=== PATIENT | female | born 1980 | race African-American/Black ===

== ENCOUNTER 2017-11-13 14:46 | Inpatient (IN) | payer OTHER ==
[2017-11-13 15:27] VITALS: BMI 39.9
--- NOTE | 2017-11-13 15:57 | HP ---
CIWA Score - CIWA Score Nausea/Vomitin-No Nausea/No Vomiting Muscle Tremors: 1-None Visible, but [place] Anxiety: 1-Mildly Anxious Agitation: 0-Normal Activity Paroxysmal Sweats: No Perspiration Orientation: 0-Oriented Tacttile Disturbances: 0-None Auditory Disturbances: 0-None Visual Disturbances: 0-None Headache: 1-Very Mild CIWA-Ar Total Score: 3 Admission ROS [facility] - HPI Chief Complaint: I'm here from drug court Allergies/Adverse Reactions: Allergies Allergy/AdvReac Type Severity Reaction Status Date / Time No Known Allergies Allergy Verified 11/13/17 15:49 History of Present Illness: 37 yo woman here for rehab. States for marijuana - also drinking vodka but states she does not want or need detox. States she is court mandated. Has been attending outpatient at [facility]. Denies seizures or black outs. Exam Limitations: No Limitations, Clinical Condition - Ebola screening Have you traveled outside of the country in the last 21 days: No Have you had contact with anyone from an Ebola affected area: No Do you have a fever: No - Review of Systems Constitutional: No Symptoms Reported EENT: reports: Blurred Vision, Nose Congestion Respiratory: reports: No Symptoms reported Cardiac: reports: No Symptoms Reported GI: reports: No Symptoms Reported : reports: No Symptoms Reported Musculoskeletal: reports: Back Pain Integumentary: reports: Dryness Neuro: reports: No Symptoms reported Endocrine: reports: No Symptoms Reported Hematology: reports: No Symptoms Reported Psychiatric: reports: Mood/Affect Appropiate, Orientated x3, other (sad about having to be here) Other Systems: Reviewed and Negative Patient History - Patient Medical History Hx Asthma: No Hx Chronic Obstructive Pulmonary Disease (COPD): No Hx Cancer: No Hx Cardiac Disorders: No Hx Congestive Heart Failure: No Hx Hypertension: Yes (on hctz) Hx Hypercholesterolemia: No Hx Pacemaker: No HX Cerebrovascular Accident: No Hx Seizures: No Hx Diabetes: No Hx Gastrointestinal Disorders: No Hx Liver Disease: No Hx Genitourinary Disorders: No Hx Sexually Transmitted Disorders: No Hx Renal Disease (ESRD): No Hx Thyroid Disease: No Hx Human Immunodeficiency Virus (HIV): No Hx Hepatitis C: No Hx Depression: Yes (with insomnia - on meds) Hx Suicide Attempt: No Hx Bipolar Disorder: No Hx Schizophrenia: No Other Medical History: eczema, back pain - Patient Surgical History Past Surgical History: No - PPD History Previous Implant?: Yes Documented Results: Negative w/o proof PPD to be Administered?: Yes - Reproductive History Patient is a Female of Child Bearing Age (11 -55 yrs old): Yes - Smoking Cessation Smoking history: Current every day smoker Have you smoked in the past 12 months: Yes Aproximately how many cigarettes per day: 20 Hx Chewing Tobacco Use: No Initiated information on smoking cessation: Yes 'Breaking Loose' booklet given: 11/13/17 - Substance & Tx. History Hx Alcohol Use: Yes Hx Substance Use: Yes Substance Use Type: Marijuana - Substances Abused Marijuana/Hashish Route: Smoking Frequency: Daily Amount used: 1 blunt Age of first use: 13 Date of Last Use: 11/12/17 alcohol Route: Oral Frequency: Daily Amount used: 2 pints Age of first use: 18 Date of Last Use: 11/12/17 Family Disease History - Family Disease History Family Disease History: Other: Father (never met him), Mother (living ,healthy) , Brother (one - living ), Sister (two - living - healthy), Daughter (one - age 11 - healthy) Admission Physical Exam [facility] - Vital Signs Vital Signs: Vital Signs - 24 hr 11/13/17 15:23 Temperature 97.5 F L Pulse Rate 77 Respiratory 20 Rate Blood Pressure 135/89 - Physical General Appearance: Yes: Nourished, Appropriately Dressed, Mild Distress HEENTM: Yes: Hearing grossly Normal, Normocephalic, Normal Voice, Pharynx Normal , Nasal Congestion Respiratory: Yes: Normal Breath Sounds, No Respiratory Distress Neck: Yes: No masses,lesions,Nodules, Supple Breast: Yes: Breast Exam Deferred Cardiology: Yes: Regular Rhythm, Regular Rate Abdominal: Yes: Soft Genitourinary: Yes: Within Normal Limits Back: Yes: Normal Inspection Musculoskeletal: Yes: full range of Motion, Gait Steady, Back pain Extremities: Yes: Normal Inspection, Normal Range of Motion, Non-Tender Neurological: Yes: Fully Oriented, Alert, Motor Strength 5/5, Normal Mood/Affect , Normal Response Integumentary: Yes: Normal Color, Dry, Warm, Other (mild itching at flexure elbow) Lymphatic: Yes: Within Normal Limits - Diagnostic (1) Alcohol dependence Current Visit: Yes Status: Acute Qualifiers: Substance use status: uncomplicated Qualified Code(s): F10.20 - Alcohol dependence, uncomplicated (2) Cannabis dependence Current Visit: Yes Status: Acute (3) Nicotine dependence Current Visit: Yes Status: Acute Qualifiers: Nicotine product type: cigarettes Substance use status: uncomplicated Qualified Code(s): F17.210 - Nicotine dependence, cigarettes, uncomplicated (4) Eczema Current Visit: Yes Status: Acute Qualifiers: Eczema type: flexural Qualified Code(s): L20.82 - Flexural eczema (5) HTN (hypertension) Current Visit: Yes Status: Acute Qualifiers: Hypertension type: essential hypertension Qualified Code(s): I10 - Essential (primary) hypertension [facility] Breath Alcohol Content Breath Alcohol Content: 0 Urine Pregancy Test - Result Urine Test Results: Negative- NO Line Present Inpatient Rehab Admission - Initial Determination Are CD services needed?: Yes Free of communicable disease: Yes Not in need of hospitalization: No - Rehab Admission Criteria Previous failed treatment: Yes Poor recovery environment: No Comorbidities: Yes Lacks judgement: No Patient is meeting Inpatient Rehab admission criteria:: Yes
[2017-11-13] MEDS ORDERED: MAGNESIUM HYDROX 2400MG/30ML ORAL SUSPENSION 30 ML CUP PO PRN (16:05)
[2017-11-13] MEDS ORDERED: P-EPHED 60MG/TRIPROLIDI 2.5MG TABLET PO PRN (16:05)
[2017-11-13] MEDS ORDERED: guaiFENesin/D-METHORPHAN HB 10 ML UNIT-DOSE CUPS PO PRN (16:05)
[2017-11-13] MEDS ORDERED: LOPERAMIDE HCL 2 MG CAPSULE PO PRN (16:05)
[2017-11-13] MEDS ORDERED: MENTHOL/PHENOL 1 EACH UD MM PRN (16:05)
[2017-11-13] MEDS ORDERED: MAG HYDROX/AL HYDROX/SIMETH 30 ML UNIT-DOSE CUP PO PRN (16:05)
[2017-11-13] MEDS ORDERED: MAGNESIUM CITRATE 300 ML BOTTLE PO PRN (16:05)
[2017-11-13] MEDS ORDERED: ACETAMINOPHEN 325 MG TABLET (FP) PO PRN (16:05)
[2017-11-13] MEDS ORDERED: TUBERCULIN PPD 5 TU/0.1ML VIAL ID ONE (20:30)
[2017-11-13] MEDS: CYCLOBENZAPRINE HCL 10 MG TABLET (FP) PO SCH (21:05)
[2017-11-13] MEDS: SENNOSIDES 8.6MG TABLET (FP) PO SCH (21:05)
[2017-11-13] MEDS: traZODone HCL 100 MG TABLET (FP) PO SCH (21:05)
[2017-11-13] MEDS: THIAMINE HCL 100 MG TABLET (FP) PO SCH (21:05)
[2017-11-13] MEDS: HYDROCHLOROTHIAZIDE 25 MG TABLET (FP) PO SCH (21:05)
[2017-11-13] MEDS: valACYclovir HCL 500 MG TABLET (FP) PO SCH (21:05)
[2017-11-13] MEDS: MELATONIN 5 MG TABLETS PO PRN (21:07)
[2017-11-13] MEDS: FLUTICASONE PROP 0.05% 16 GM NASAL SPRAY NS SCH (23:08)
[2017-11-14] MEDS: IBUPROFEN 400 MG TABLET (FP) PO PRN (06:56)
[2017-11-14] MEDS: PRENATAL VITAMINS W/ FOLIC ACID TABLET (FP) PO SCH (10:30)
[2017-11-14 10:40] LABS: HEMATOCRIT 33.2 % (32.4-45.2); HEMOGLOBIN 11.1 GM/dL (10.7-15.3); MCH 29.1 pg (25.7-33.7); MCHC 33.3 g/dl (32.0-36.0); MEAN CELL VOLUME 87.4 fl (80-96); MEAN PLT VOLUME 8.6 fl (7.5-11.1); PLATELET COUNT 281 K/MM3 (134-434); RDW 14.1 % (11.6-15.6); WHITE BLOOD COUNT 7.6 K/mm3 (4.0-10.0)
[2017-11-14 10:46] LABS: CHLORIDE 102 mmol/L (98-107); POTASSIUM 3.1 mmol/L (3.5-5.1); SODIUM 141 mmol/L (136-145)
[2017-11-14 11:01] LABS: ALBUMIN 3.1 g/dl (3.4-5.0); ALK PHOS 80 U/L (45-117); ANION GAP 11 MMOL/L (8-16); BILIRUBIN,TOTAL 0.2 mg/dL (0.2-1.0); BLOOD UREA NITROGEN 15 mg/dL (7-18); CALCIUM 8.9 mg/dL (8.5-10.1); CO2 28 mmol/L (21-32); CREATININE 0.9 mg/dL (0.55-1.02); GLUCOSE,RANDOM 125 mg/dL (74-106); SGOT/AST 36 U/L (15-37); SGPT/ALT 34 U/L (12-78); TOT PROT 6.7 g/dl (6.4-8.2)
--- NOTE | 2017-11-14 13:19 | PN ---
[facility] Progress Note Note: Vital Signs Temperature 98.2 F 11/14/17 07:28 Pulse Rate 71 11/14/17 07:28 Respiratory Rate 18 11/14/17 07:28 Blood Pressure 114/78 11/14/17 07:28 O2 Sat by Pulse Oximetry (%) Laboratory Last Values WBC 7.6 K/mm3 (4.0-10.0) 11/14/17 08:00 RBC 3.80 M/mm3 (3.60-5.2) 11/14/17 08:00 Hgb 11.1 GM/dL (10.7-15.3) 11/14/17 08:00 Hct 33.2 % (32.4-45.2) 11/14/17 08:00 MCV 87.4 fl (80-96) 11/14/17 08:00 MCH 29.1 pg (25.7-33.7) 11/14/17 08:00 MCHC 33.3 g/dl (32.0-36.0) 11/14/17 08:00 RDW 14.1 % (11.6-15.6) 11/14/17 08:00 Plt Count 281 K/MM3 (134-434) 11/14/17 08:00 MPV 8.6 fl (7.5-11.1) 11/14/17 08:00 Sodium 141 mmol/L (136-145) 11/14/17 08:00 Potassium 3.1 mmol/L (3.5-5.1) L 11/14/17 08:00 Chloride 102 mmol/L (98-107) 11/14/17 08:00 Carbon Dioxide 28 mmol/L (21-32) 11/14/17 08:00 Anion Gap 11 MMOL/L (8-16) 11/14/17 08:00 BUN 15 mg/dL (7-18) 11/14/17 08:00 Creatinine 0.9 mg/dL (0.55-1.02) 11/14/17 08:00 Creat Clearance w eGFR > 60 (>60) 11/14/17 08:00 Random Glucose 125 mg/dL (74-106) H 11/14/17 08:00 Calcium 8.9 mg/dL (8.5-10.1) 11/14/17 08:00 Total Bilirubin 0.2 mg/dL (0.2-1.0) 11/14/17 08:00 AST 36 U/L (15-37) 11/14/17 08:00 ALT 34 U/L (12-78) 11/14/17 08:00 Alkaline Phosphatase 80 U/L (45-117) 11/14/17 08:00 Total Protein 6.7 g/dl (6.4-8.2) 11/14/17 08:00 Albumin 3.1 g/dl (3.4-5.0) L 11/14/17 08:00 RPR Titer Nonreactive (NONREACTIVE) 11/14/17 08:00 Labs review mild hyperglycemia, asymptomatic increase fluids BGM ACBK x2 continue to monitor
[2017-11-14] MEDS: SENNOSIDES 8.6MG TABLET (FP) PO SCH (21:39)
[2017-11-14] MEDS: HYDROCHLOROTHIAZIDE 25 MG TABLET (FP) PO SCH (21:39)
[2017-11-14] MEDS: THIAMINE HCL 100 MG TABLET (FP) PO SCH (21:39)
[2017-11-14] MEDS: CYCLOBENZAPRINE HCL 10 MG TABLET (FP) PO SCH (21:39)
[2017-11-14] MEDS: traZODone HCL 100 MG TABLET (FP) PO SCH (21:39)
[2017-11-14] MEDS: valACYclovir HCL 500 MG TABLET (FP) PO SCH (21:41)
[2017-11-14] MEDS: FLUTICASONE PROP 0.05% 16 GM NASAL SPRAY NS SCH (21:41)
[2017-11-15] MEDS: PRENATAL VITAMINS W/ FOLIC ACID TABLET (FP) PO SCH (10:15)
[2017-11-15 11:45] LABS: URINE APPEARANCE SLCLOUDY; URINE BILIRUBIN NEGATIVE (<2.0 mg/dL); URINE COLOR YELLOW; URINE GLUCOSE (UA) NEGATIVE (NEGATIVE); URINE KETONE NEGATIVE (NEGATIVE); URINE LEUK ESTERASE NEGATIVE (NEGATIVE); URINE NITRITE NEGATIVE (NEGATIVE); URINE PROTEIN NEGATIVE (NEGATIVE); URINE UROBILINOGEN NEGATIVE mg/dL (0.2-1.0)
[2017-11-15] MEDS: CYCLOBENZAPRINE HCL 10 MG TABLET (FP) PO SCH (21:30)
[2017-11-15] MEDS: SENNOSIDES 8.6MG TABLET (FP) PO SCH (21:30)
[2017-11-15] MEDS: HYDROCHLOROTHIAZIDE 25 MG TABLET (FP) PO SCH (21:30)
[2017-11-15] MEDS: traZODone HCL 100 MG TABLET (FP) PO SCH (21:30)
[2017-11-15] MEDS: THIAMINE HCL 100 MG TABLET (FP) PO SCH (21:30)
[2017-11-15] MEDS: valACYclovir HCL 500 MG TABLET (FP) PO SCH (22:03)
[2017-11-15] MEDS: FLUTICASONE PROP 0.05% 16 GM NASAL SPRAY NS SCH (22:03)
--- NOTE | 2017-11-16 08:49 | HP ---
Psychiatrist Admission - Data Date of interview: 11/16/17 Admission source: [address] Identifying data: This is the first admission to [address] [place] [address] for this 37 years ols single AA mother of 11 yo daughter(child resides with the patient's mother).Patient is homeless,supported with PA. Medical History: Significant for HTN,Obesity. Psychiatric History: Patient reports mood instability,depression,anxiety on and off related to drug /alcohol abuse.No previous psychiatric hospitalizations, no suicidal attempts reported .Patient was given Buspar 30 mg po daily and Trazodone 150 mg po hs, while treated in one of the inpatient rehabilitation treatments.Patient continued the same medications prescribed by psychiatrist at [facility] in [facility]. Physical/Sexual Abuse/Trauma History: denies Vital Signs: Vital Signs - 24 hr 11/15/17 11/15/17 11/16/17 09:05 22:10 00:30 Temperature Pulse Rate 72 73 Respiratory 18 18 Rate Blood Pressure 111/73 115/72 11/16/17 11/16/17 03:30 07:14 Temperature 99 F Pulse Rate 96 H Respiratory 18 16 Rate Blood Pressure 111/72 Allergies/Adverse Reactions: Allergies Allergy/AdvReac Type Severity Reaction Status Date / Time No Known Allergies Allergy Verified 11/13/17 15:49 Concur with the findings of this exam: Yes - Substance Abuse/Tx History Hx Alcohol Use: Yes (drinking since her teens,eduardo liquor) Hx Substance Use: Yes (marjuana since 13 yo,blunt a day,cocaine since 16 yo, more than $100) Substance Use Type: Alcohol, Cocaine, Marijuana Hx Substance Use Treatment: Yes (completed [facility] 6 months ago) Mental Status Exam - Mental Status Exam Alert and Oriented to: Time, Place, Person Cognitive Function: Grossly Intact Patient Appearance: Well Groomed Mood: Anxious Affect: Mood Congruent, Labile Patient Behavior: Cooperative Speech Pattern: Clear Voice Loudness: Normal Thought Process: Goal Oriented Thought Disorder: Not Present Hallucinations: Denies Suicidal Ideation: Denies Homicidal Ideation: Denies Insight/Judgement: Fair Sleep: Fair Appetite: Good Muscle strength/Tone: Normal Gait/Station: Normal Psychiatric Findings - Problem List ([place] 1, 2,3) (1) Alcohol dependence Current Visit: Yes Status: Chronic Qualifiers: Substance use status: uncomplicated Qualified Code(s): F10.20 - Alcohol dependence, uncomplicated (2) Cannabis dependence Current Visit: Yes Status: Chronic (3) Eczema Current Visit: Yes Status: Chronic Qualifiers: Eczema type: flexural Qualified Code(s): L20.82 - Flexural eczema (4) HTN (hypertension) Current Visit: Yes Status: Chronic Qualifiers: Hypertension type: essential hypertension Qualified Code(s): I10 - Essential (primary) hypertension (5) Nicotine dependence Current Visit: Yes Status: Chronic Qualifiers: Nicotine product type: cigarettes Substance use status: uncomplicated Qualified Code(s): F17.210 - Nicotine dependence, cigarettes, uncomplicated (6) Obesity (BMI 30-39.9) Current Visit: Yes Status: Chronic (7) Cocaine dependence Current Visit: Yes Status: Chronic (8) Drug-induced mood disorder Current Visit: Yes Status: Chronic - Initial Treatment Plan Initial Treatment Plan: Continue current medications as per plan. Will monitor progress.
[2017-11-16] MEDS: PRENATAL VITAMINS W/ FOLIC ACID TABLET (FP) PO SCH (09:46)
--- NOTE | 2017-11-16 11:25 | EKG ---
Test Reason : Blood Pressure : / mmHG Vent. Rate : 068 BPM Atrial Rate : 068 BPM P-R Int : 196 ms QRS Dur : 096 ms QT Int : 442 ms P-R-T Axes : 055 062 042 degrees QTc Int : 469 ms NORMAL SINUS RHYTHM NORMAL ECG NO PREVIOUS ECGS AVAILABLE Confirmed by SYLVIA RICHARDSON MD ([id number]) on 11/16/2017 11:25:24 AM Referred By: Confirmed By:SYLVIA RICHARDSON MD
[2017-11-16] MEDS: FLUTICASONE PROP 0.05% 16 GM NASAL SPRAY NS SCH (21:28)
[2017-11-16] MEDS: THIAMINE HCL 100 MG TABLET (FP) PO SCH (21:28)
[2017-11-16] MEDS: CYCLOBENZAPRINE HCL 10 MG TABLET (FP) PO SCH (21:28)
[2017-11-16] MEDS: SENNOSIDES 8.6MG TABLET (FP) PO SCH (21:28)
[2017-11-16] MEDS: HYDROCHLOROTHIAZIDE 25 MG TABLET (FP) PO SCH (21:28)
[2017-11-16] MEDS: MELATONIN 5 MG TABLETS PO PRN (21:30)
[2017-11-16] MEDS: traZODone HCL 100 MG TABLET (FP) PO SCH (21:32)
[2017-11-16] MEDS: valACYclovir HCL 500 MG TABLET (FP) PO SCH (21:33)
[2017-11-17] MEDS: PRENATAL VITAMINS W/ FOLIC ACID TABLET (FP) PO SCH (11:15)
--- NOTE | 2017-11-17 13:46 | PN ---
[facility] Progress Note Note: Vital Signs Temperature 99 F 11/16/17 07:14 Pulse Rate 69 11/17/17 09:12 Respiratory Rate 18 11/17/17 03:30 Blood Pressure 117/77 11/17/17 09:12 O2 Sat by Pulse Oximetry (%) Laboratory Last Values WBC 7.6 K/mm3 (4.0-10.0) 11/14/17 08:00 RBC 3.80 M/mm3 (3.60-5.2) 11/14/17 08:00 Hgb 11.1 GM/dL (10.7-15.3) 11/14/17 08:00 Hct 33.2 % (32.4-45.2) 11/14/17 08:00 MCV 87.4 fl (80-96) 11/14/17 08:00 MCH 29.1 pg (25.7-33.7) 11/14/17 08:00 MCHC 33.3 g/dl (32.0-36.0) 11/14/17 08:00 RDW 14.1 % (11.6-15.6) 11/14/17 08:00 Plt Count 281 K/MM3 (134-434) 11/14/17 08:00 MPV 8.6 fl (7.5-11.1) 11/14/17 08:00 Sodium 141 mmol/L (136-145) 11/14/17 08:00 Potassium 3.1 mmol/L (3.5-5.1) L 11/14/17 08:00 Chloride 102 mmol/L (98-107) 11/14/17 08:00 Carbon Dioxide 28 mmol/L (21-32) 11/14/17 08:00 Anion Gap 11 MMOL/L (8-16) 11/14/17 08:00 BUN 15 mg/dL (7-18) 11/14/17 08:00 Creatinine 0.9 mg/dL (0.55-1.02) 11/14/17 08:00 Creat Clearance w eGFR > 60 (>60) 11/14/17 08:00 Random Glucose 125 mg/dL (74-106) H 11/14/17 08:00 Calcium 8.9 mg/dL (8.5-10.1) 11/14/17 08:00 Total Bilirubin 0.2 mg/dL (0.2-1.0) 11/14/17 08:00 AST 36 U/L (15-37) 11/14/17 08:00 ALT 34 U/L (12-78) 11/14/17 08:00 Alkaline Phosphatase 80 U/L (45-117) 11/14/17 08:00 Total Protein 6.7 g/dl (6.4-8.2) 11/14/17 08:00 Albumin 3.1 g/dl (3.4-5.0) L 11/14/17 08:00 Urine Color Yellow 11/15/17 09:00 Urine Appearance Slcloudy 11/15/17 09:00 Urine pH 6.0 (5.0-8.0) 11/15/17 09:00 Ur Specific [place] 1.023 (1.001-1.035) 11/15/17 09:00 Urine Protein Negative (NEGATIVE) 11/15/17 09:00 Urine Glucose (UA) Negative (NEGATIVE) 11/15/17 09:00 Urine Ketones Negative (NEGATIVE) 11/15/17 09:00 Urine Blood Negative (NEGATIVE) 11/15/17 09:00 Urine Nitrite Negative (NEGATIVE) 11/15/17 09:00 Urine Bilirubin Negative (<2.0 mg/dL) 11/15/17 09:00 Urine Urobilinogen Negative mg/dL (0.2-1.0) 11/15/17 09:00 Ur Leukocyte Esterase Negative (NEGATIVE) 11/15/17 09:00 RPR Titer Nonreactive (NONREACTIVE) 11/14/17 08:00 Patient medically. Patient with mild elevated glucose, refuse BGM this morning Patient with mild hypokelemia will start on Kdur and repeat K+ in AM, patient aware c/o of hx of eczema will start on TP hydrocortisone. continue to monitor
[2017-11-17] MEDS: POTASSIUM CHLORIDE TABS 20 MEQ TABLET.ER (FP) PO SCH (14:11)
[2017-11-17] MEDS: HYDROCHLOROTHIAZIDE 25 MG TABLET (FP) PO SCH (21:32)
[2017-11-17] MEDS: THIAMINE HCL 100 MG TABLET (FP) PO SCH (21:32)
[2017-11-17] MEDS: hydrOXYzine PAMOATE 50 MG CAPSULE (FP) PO PRN (21:32)
[2017-11-17] MEDS: SENNOSIDES 8.6MG TABLET (FP) PO SCH (21:32)
[2017-11-17] MEDS: CYCLOBENZAPRINE HCL 10 MG TABLET (FP) PO SCH (21:33)
[2017-11-17] MEDS: valACYclovir HCL 500 MG TABLET (FP) PO SCH (21:34)
[2017-11-17] MEDS: traZODone HCL 100 MG TABLET (FP) PO SCH (21:34)
[2017-11-17] MEDS ORDERED: PT OWN MED DRAWER 7, Y5N ONE (21:35)
[2017-11-17] MEDS: FLUTICASONE PROP 0.05% 16 GM NASAL SPRAY NS SCH (21:36)
[2017-11-17] MEDS: HYDROCORTISONE 1% TOPICAL CREAM 30 GM TUBE TP PRN (21:37)
[2017-11-18] MEDS: PRENATAL VITAMINS W/ FOLIC ACID TABLET (FP) PO SCH (10:00)
[2017-11-18] MEDS: POTASSIUM CHLORIDE TABS 20 MEQ TABLET.ER (FP) PO SCH (10:00)
--- NOTE | 2017-11-18 14:12 | PN ---
[facility] Progress Note Note: Vital Signs Temperature 98.3 F 11/18/17 07:03 Pulse Rate 71 11/18/17 07:03 Respiratory Rate 16 11/18/17 07:03 Blood Pressure 112/72 11/18/17 07:03 O2 Sat by Pulse Oximetry (%) Laboratory Last Values WBC 7.6 K/mm3 (4.0-10.0) 11/14/17 08:00 RBC 3.80 M/mm3 (3.60-5.2) 11/14/17 08:00 Hgb 11.1 GM/dL (10.7-15.3) 11/14/17 08:00 Hct 33.2 % (32.4-45.2) 11/14/17 08:00 MCV 87.4 fl (80-96) 11/14/17 08:00 MCH 29.1 pg (25.7-33.7) 11/14/17 08:00 MCHC 33.3 g/dl (32.0-36.0) 11/14/17 08:00 RDW 14.1 % (11.6-15.6) 11/14/17 08:00 Plt Count 281 K/MM3 (134-434) 11/14/17 08:00 MPV 8.6 fl (7.5-11.1) 11/14/17 08:00 Sodium 141 mmol/L (136-145) 11/14/17 08:00 Potassium 3.3 mmol/L (3.5-5.1) L 11/18/17 08:40 Chloride 102 mmol/L (98-107) 11/14/17 08:00 Carbon Dioxide 28 mmol/L (21-32) 11/14/17 08:00 Anion Gap 11 MMOL/L (8-16) 11/14/17 08:00 BUN 15 mg/dL (7-18) 11/14/17 08:00 Creatinine 0.9 mg/dL (0.55-1.02) 11/14/17 08:00 Creat Clearance w eGFR > 60 (>60) 11/14/17 08:00 Random Glucose 125 mg/dL (74-106) H 11/14/17 08:00 Calcium 8.9 mg/dL (8.5-10.1) 11/14/17 08:00 Total Bilirubin 0.2 mg/dL (0.2-1.0) 11/14/17 08:00 AST 36 U/L (15-37) 11/14/17 08:00 ALT 34 U/L (12-78) 11/14/17 08:00 Alkaline Phosphatase 80 U/L (45-117) 11/14/17 08:00 Total Protein 6.7 g/dl (6.4-8.2) 11/14/17 08:00 Albumin 3.1 g/dl (3.4-5.0) L 11/14/17 08:00 Urine Color Yellow 11/15/17 09:00 Urine Appearance Slcloudy 11/15/17 09:00 Urine pH 6.0 (5.0-8.0) 11/15/17 09:00 Ur Specific [place] 1.023 (1.001-1.035) 11/15/17 09:00 Urine Protein Negative (NEGATIVE) 11/15/17 09:00 Urine Glucose (UA) Negative (NEGATIVE) 11/15/17 09:00 Urine Ketones Negative (NEGATIVE) 11/15/17 09:00 Urine Blood Negative (NEGATIVE) 11/15/17 09:00 Urine Nitrite Negative (NEGATIVE) 11/15/17 09:00 Urine Bilirubin Negative (<2.0 mg/dL) 11/15/17 09:00 Urine Urobilinogen Negative mg/dL (0.2-1.0) 11/15/17 09:00 Ur Leukocyte Esterase Negative (NEGATIVE) 11/15/17 09:00 RPR Titer Nonreactive (NONREACTIVE) 11/14/17 08:00 Patient on Kdur for hyperkalemia asymptomatic last k+ = 3.3 continue Kdur repeat K+ 11/21/17
[2017-11-18] MEDS: CYCLOBENZAPRINE HCL 10 MG TABLET (FP) PO SCH (21:22)
[2017-11-18] MEDS: THIAMINE HCL 100 MG TABLET (FP) PO SCH (21:22)
[2017-11-18] MEDS: hydrOXYzine PAMOATE 50 MG CAPSULE (FP) PO PRN (21:23)
[2017-11-18] MEDS: traZODone HCL 50 MG TABLET (FP) PO SCH (21:23)
[2017-11-18] MEDS: SENNOSIDES 8.6MG TABLET (FP) PO SCH (21:23)
[2017-11-18] MEDS: HYDROCHLOROTHIAZIDE 25 MG TABLET (FP) PO SCH (21:23)
[2017-11-18] MEDS: valACYclovir HCL 500 MG TABLET (FP) PO SCH (21:23)
[2017-11-18] MEDS: FLUTICASONE PROP 0.05% 16 GM NASAL SPRAY NS SCH (21:25)
[2017-11-19] MEDS: POTASSIUM CHLORIDE TABS 20 MEQ TABLET.ER (FP) PO SCH (09:51)
[2017-11-19] MEDS: PRENATAL VITAMINS W/ FOLIC ACID TABLET (FP) PO SCH (09:52)
[2017-11-19] MEDS: IBUPROFEN 400 MG TABLET (FP) PO PRN (21:18)
[2017-11-19] MEDS: traZODone HCL 50 MG TABLET (FP) PO SCH (21:19)
[2017-11-19] MEDS: SENNOSIDES 8.6MG TABLET (FP) PO SCH (21:19)
[2017-11-19] MEDS: HYDROCHLOROTHIAZIDE 25 MG TABLET (FP) PO SCH (21:19)
[2017-11-19] MEDS: CYCLOBENZAPRINE HCL 10 MG TABLET (FP) PO SCH (21:19)
[2017-11-19] MEDS: THIAMINE HCL 100 MG TABLET (FP) PO SCH (21:20)
[2017-11-19] MEDS: hydrOXYzine PAMOATE 50 MG CAPSULE (FP) PO PRN (21:20)
[2017-11-19] MEDS: FLUTICASONE PROP 0.05% 16 GM NASAL SPRAY NS SCH (21:22)
[2017-11-19] MEDS: valACYclovir HCL 500 MG TABLET (FP) PO SCH (21:22)
[2017-11-20] MEDS: PRENATAL VITAMINS W/ FOLIC ACID TABLET (FP) PO SCH (09:57)
[2017-11-20] MEDS: POTASSIUM CHLORIDE TABS 20 MEQ TABLET.ER (FP) PO SCH (09:58)
[2017-11-20] MEDS: HYDROCORTISONE 1% TOPICAL CREAM 30 GM TUBE TP PRN (09:59)
--- NOTE | 2017-11-20 19:52 | PN ---
S Progress Note Note: A&O. No chest pain, muscle weakness, SOB. Vital Signs - 24 hr 11/19/17 11/20/17 11/20/17 21:22 00:30 03:30 Temperature Pulse Rate 73 Respiratory 18 18 18 Rate Blood Pressure 129/79 11/20/17 11/20/17 06:51 10:00 Temperature 97.1 F L 98.2 F Pulse Rate 72 73 Respiratory 18 18 Rate Blood Pressure 121/76 117/76 Laboratory Results - last 24 hr 11/20/17 08:30 Potassium 3.7 LABS REVIEWED. Continue on KCL 20 meq daily. Repeat K on 05/22.
[2017-11-20] MEDS: HYDROCHLOROTHIAZIDE 25 MG TABLET (FP) PO SCH (21:16)
[2017-11-20] MEDS: CYCLOBENZAPRINE HCL 10 MG TABLET (FP) PO SCH (21:16)
[2017-11-20] MEDS: THIAMINE HCL 100 MG TABLET (FP) PO SCH (21:16)
[2017-11-20] MEDS: SENNOSIDES 8.6MG TABLET (FP) PO SCH (21:16)
[2017-11-20] MEDS: MELATONIN 5 MG TABLETS PO PRN (21:17)
[2017-11-20] MEDS: hydrOXYzine PAMOATE 50 MG CAPSULE (FP) PO PRN (21:17)
[2017-11-20] MEDS: traZODone HCL 50 MG TABLET (FP) PO SCH (21:17)
[2017-11-20] MEDS: IBUPROFEN 400 MG TABLET (FP) PO PRN (21:19)
[2017-11-20] MEDS: FLUTICASONE PROP 0.05% 16 GM NASAL SPRAY NS SCH (22:25)
[2017-11-20] MEDS: valACYclovir HCL 500 MG TABLET (FP) PO SCH (22:25)
[2017-11-21] MEDS: PRENATAL VITAMINS W/ FOLIC ACID TABLET (FP) PO SCH (09:27)
[2017-11-21] MEDS: POTASSIUM CHLORIDE TABS 20 MEQ TABLET.ER (FP) PO SCH (09:27)
[2017-11-21] MEDS: THIAMINE HCL 100 MG TABLET (FP) PO SCH (21:14)
[2017-11-21] MEDS: HYDROCHLOROTHIAZIDE 25 MG TABLET (FP) PO SCH (21:14)
[2017-11-21] MEDS: traZODone HCL 50 MG TABLET (FP) PO SCH (21:14)
[2017-11-21] MEDS: SENNOSIDES 8.6MG TABLET (FP) PO SCH (21:14)
[2017-11-21] MEDS: CYCLOBENZAPRINE HCL 10 MG TABLET (FP) PO SCH (21:14)
[2017-11-21] MEDS: valACYclovir HCL 500 MG TABLET (FP) PO SCH (21:15)
[2017-11-21] MEDS: MELATONIN 5 MG TABLETS PO PRN (21:16)
[2017-11-21] MEDS: hydrOXYzine PAMOATE 50 MG CAPSULE (FP) PO PRN (21:17)
[2017-11-21] MEDS: FLUTICASONE PROP 0.05% 16 GM NASAL SPRAY NS SCH (21:17)
[2017-11-22] MEDS: PRENATAL VITAMINS W/ FOLIC ACID TABLET (FP) PO SCH (10:27)
[2017-11-22] MEDS: POTASSIUM CHLORIDE TABS 20 MEQ TABLET.ER (FP) PO SCH (10:28)
[2017-11-22] MEDS: HYDROCORTISONE 1% TOPICAL CREAM 30 GM TUBE TP PRN (10:28)
--- NOTE | 2017-11-22 13:23 | PN ---
S Progress Note Note: Patient does not want to take potassium supplements any longer. CMP Sodium 141 mmol/L (136-145) 11/14/17 08:00 Potassium 3.7 mmol/L (3.5-5.1) 11/20/17 08:30 Chloride 102 mmol/L (98-107) 11/14/17 08:00 Carbon Dioxide 28 mmol/L (21-32) 11/14/17 08:00 Anion Gap 11 MMOL/L (8-16) 11/14/17 08:00 BUN 15 mg/dL (7-18) 11/14/17 08:00 Creatinine 0.9 mg/dL (0.55-1.02) 11/14/17 08:00 Creat Clearance w eGFR > 60 (>60) 11/14/17 08:00 Random Glucose 125 mg/dL (74-106) H 11/14/17 08:00 Calcium 8.9 mg/dL (8.5-10.1) 11/14/17 08:00 Total Bilirubin 0.2 mg/dL (0.2-1.0) 11/14/17 08:00 AST 36 U/L (15-37) 11/14/17 08:00 ALT 34 U/L (12-78) 11/14/17 08:00 Alkaline Phosphatase 80 U/L (45-117) 11/14/17 08:00 Total Protein 6.7 g/dl (6.4-8.2) 11/14/17 08:00 Albumin 3.1 g/dl (3.4-5.0) L 11/14/17 08:00 Vital Signs 11/22/17 07:10 Temperature 98.0 F Pulse Rate 73 Respiratory 18 Rate Blood Pressure 112/75 Reviewed lab results w/patient. Will D/c KCL. Repeat serum potassium in am.
[2017-11-22] MEDS: THIAMINE HCL 100 MG TABLET (FP) PO SCH (21:18)
[2017-11-22] MEDS: CYCLOBENZAPRINE HCL 10 MG TABLET (FP) PO SCH (21:19)
[2017-11-22] MEDS: SENNOSIDES 8.6MG TABLET (FP) PO SCH (21:19)
[2017-11-22] MEDS: traZODone HCL 50 MG TABLET (FP) PO SCH (21:19)
[2017-11-22] MEDS: hydrOXYzine PAMOATE 50 MG CAPSULE (FP) PO PRN (21:19)
[2017-11-22] MEDS: HYDROCHLOROTHIAZIDE 25 MG TABLET (FP) PO SCH (21:19)
[2017-11-22] MEDS: IBUPROFEN 400 MG TABLET (FP) PO PRN (21:19)
[2017-11-22] MEDS: MELATONIN 5 MG TABLETS PO PRN (21:21)
[2017-11-22] MEDS: FLUTICASONE PROP 0.05% 16 GM NASAL SPRAY NS SCH (21:21)
[2017-11-22] MEDS: valACYclovir HCL 500 MG TABLET (FP) PO SCH (21:45)
[2017-11-22] MEDS: COLLOIDAL OATMEAL 1 BAR EACH TP PRN (22:02)
[2017-11-23] MEDS: IBUPROFEN 400 MG TABLET (FP) PO PRN ×2 (10:17→21:06)
[2017-11-23] MEDS: PRENATAL VITAMINS W/ FOLIC ACID TABLET (FP) PO SCH (10:18)
[2017-11-23] MEDS: CYCLOBENZAPRINE HCL 10 MG TABLET (FP) PO SCH (21:05)
[2017-11-23] MEDS: SENNOSIDES 8.6MG TABLET (FP) PO SCH (21:05)
[2017-11-23] MEDS: valACYclovir HCL 500 MG TABLET (FP) PO SCH (21:05)
[2017-11-23] MEDS: FLUTICASONE PROP 0.05% 16 GM NASAL SPRAY NS SCH (21:05)
[2017-11-23] MEDS: THIAMINE HCL 100 MG TABLET (FP) PO SCH (21:05)
[2017-11-23] MEDS: HYDROCHLOROTHIAZIDE 25 MG TABLET (FP) PO SCH (21:05)
[2017-11-23] MEDS: traZODone HCL 50 MG TABLET (FP) PO SCH (21:05)
[2017-11-23] MEDS: MELATONIN 5 MG TABLETS PO PRN (21:06)
[2017-11-23] MEDS: hydrOXYzine PAMOATE 50 MG CAPSULE (FP) PO PRN (21:06)
[2017-11-24] MEDS: PRENATAL VITAMINS W/ FOLIC ACID TABLET (FP) PO SCH (09:50)
[2017-11-24] MEDS: IBUPROFEN 400 MG TABLET (FP) PO PRN ×2 (09:51→21:14)
[2017-11-24] MEDS: FLUTICASONE PROP 0.05% 16 GM NASAL SPRAY NS SCH (21:11)
[2017-11-24] MEDS: valACYclovir HCL 500 MG TABLET (FP) PO SCH (21:12)
[2017-11-24] MEDS: SENNOSIDES 8.6MG TABLET (FP) PO SCH (21:12)
[2017-11-24] MEDS: CYCLOBENZAPRINE HCL 10 MG TABLET (FP) PO SCH (21:12)
[2017-11-24] MEDS: HYDROCHLOROTHIAZIDE 25 MG TABLET (FP) PO SCH (21:12)
[2017-11-24] MEDS: THIAMINE HCL 100 MG TABLET (FP) PO SCH (21:12)
[2017-11-24] MEDS: MELATONIN 5 MG TABLETS PO PRN (21:12)
[2017-11-24] MEDS: traZODone HCL 50 MG TABLET (FP) PO SCH (21:12)
[2017-11-24] MEDS: hydrOXYzine PAMOATE 50 MG CAPSULE (FP) PO PRN (21:12)
[2017-11-25] MEDS: PRENATAL VITAMINS W/ FOLIC ACID TABLET (FP) PO SCH (10:01)
[2017-11-25] MEDS: HYDROCORTISONE 1% TOPICAL CREAM 30 GM TUBE TP PRN (10:02)
[2017-11-25] MEDS: traZODone HCL 50 MG TABLET (FP) PO SCH (21:26)
[2017-11-25] MEDS: FLUTICASONE PROP 0.05% 16 GM NASAL SPRAY NS SCH (21:27)
[2017-11-25] MEDS: valACYclovir HCL 500 MG TABLET (FP) PO SCH (21:27)
[2017-11-25] MEDS: CYCLOBENZAPRINE HCL 10 MG TABLET (FP) PO SCH (21:27)
[2017-11-25] MEDS: SENNOSIDES 8.6MG TABLET (FP) PO SCH (21:27)
[2017-11-25] MEDS: HYDROCHLOROTHIAZIDE 25 MG TABLET (FP) PO SCH (21:27)
[2017-11-25] MEDS: MELATONIN 5 MG TABLETS PO PRN (21:28)
[2017-11-25] MEDS: THIAMINE HCL 100 MG TABLET (FP) PO SCH (21:28)
[2017-11-26] MEDS: PRENATAL VITAMINS W/ FOLIC ACID TABLET (FP) PO SCH (09:36)
[2017-11-26] MEDS: IBUPROFEN 400 MG TABLET (FP) PO PRN ×2 (15:35→21:08)
[2017-11-26] MEDS: valACYclovir HCL 500 MG TABLET (FP) PO SCH (21:05)
[2017-11-26] MEDS: HYDROCHLOROTHIAZIDE 25 MG TABLET (FP) PO SCH (21:05)
[2017-11-26] MEDS: THIAMINE HCL 100 MG TABLET (FP) PO SCH (21:05)
[2017-11-26] MEDS: traZODone HCL 50 MG TABLET (FP) PO SCH (21:06)
[2017-11-26] MEDS: SENNOSIDES 8.6MG TABLET (FP) PO SCH (21:06)
[2017-11-26] MEDS: CYCLOBENZAPRINE HCL 10 MG TABLET (FP) PO SCH (21:06)
[2017-11-26] MEDS: MELATONIN 5 MG TABLETS PO PRN (21:08)
[2017-11-26] MEDS: hydrOXYzine PAMOATE 50 MG CAPSULE (FP) PO PRN (21:08)
[2017-11-26] MEDS: FLUTICASONE PROP 0.05% 16 GM NASAL SPRAY NS SCH (21:46)
[2017-11-27] MEDS: IBUPROFEN 400 MG TABLET (FP) PO PRN ×2 (09:53→21:46)
[2017-11-27] MEDS: PRENATAL VITAMINS W/ FOLIC ACID TABLET (FP) PO SCH (09:55)
[2017-11-27] MEDS: SENNOSIDES 8.6MG TABLET (FP) PO SCH (21:46)
[2017-11-27] MEDS: MELATONIN 5 MG TABLETS PO PRN (21:46)
[2017-11-27] MEDS: THIAMINE HCL 100 MG TABLET (FP) PO SCH (21:46)
[2017-11-27] MEDS: FLUTICASONE PROP 0.05% 16 GM NASAL SPRAY NS SCH (21:47)
[2017-11-27] MEDS: CYCLOBENZAPRINE HCL 10 MG TABLET (FP) PO SCH (21:47)
[2017-11-27] MEDS: HYDROCHLOROTHIAZIDE 25 MG TABLET (FP) PO SCH (21:47)
[2017-11-27] MEDS: traZODone HCL 50 MG TABLET (FP) PO SCH (21:48)
[2017-11-27] MEDS: hydrOXYzine PAMOATE 50 MG CAPSULE (FP) PO PRN (21:50)
[2017-11-28] MEDS: PRENATAL VITAMINS W/ FOLIC ACID TABLET (FP) PO SCH (09:58)
[2017-11-28] MEDS ORDERED: PT OWN MED DRAWER 7, Y5N ONE (20:19)
[2017-11-28] MEDS: FLUTICASONE PROP 0.05% 16 GM NASAL SPRAY NS SCH (21:21)
[2017-11-28] MEDS: valACYclovir HCL 500 MG TABLET (FP) PO SCH (21:22)
[2017-11-28] MEDS: SENNOSIDES 8.6MG TABLET (FP) PO SCH (21:22)
[2017-11-28] MEDS: THIAMINE HCL 100 MG TABLET (FP) PO SCH (21:22)
[2017-11-28] MEDS: traZODone HCL 50 MG TABLET (FP) PO SCH (21:22)
[2017-11-28] MEDS: CYCLOBENZAPRINE HCL 10 MG TABLET (FP) PO SCH (21:22)
[2017-11-28] MEDS: HYDROCHLOROTHIAZIDE 25 MG TABLET (FP) PO SCH (21:22)
[2017-11-28] MEDS: hydrOXYzine PAMOATE 50 MG CAPSULE (FP) PO PRN (21:24)
[2017-11-28] MEDS: IBUPROFEN 400 MG TABLET (FP) PO PRN (21:24)
[2017-11-28] MEDS: MELATONIN 5 MG TABLETS PO PRN (21:24)
[2017-11-29] MEDS: PRENATAL VITAMINS W/ FOLIC ACID TABLET (FP) PO SCH (10:22)
[2017-11-29] MEDS: MELATONIN 5 MG TABLETS PO PRN (21:11)
[2017-11-29] MEDS: SENNOSIDES 8.6MG TABLET (FP) PO SCH (21:11)
[2017-11-29] MEDS: CYCLOBENZAPRINE HCL 10 MG TABLET (FP) PO SCH (21:11)
[2017-11-29] MEDS: traZODone HCL 50 MG TABLET (FP) PO SCH (21:11)
[2017-11-29] MEDS: hydrOXYzine PAMOATE 50 MG CAPSULE (FP) PO PRN (21:11)
[2017-11-29] MEDS: IBUPROFEN 400 MG TABLET (FP) PO PRN (21:11)
[2017-11-29] MEDS: FLUTICASONE PROP 0.05% 16 GM NASAL SPRAY NS SCH (21:11)
[2017-11-29] MEDS: HYDROCHLOROTHIAZIDE 25 MG TABLET (FP) PO SCH (21:11)
[2017-11-29] MEDS: THIAMINE HCL 100 MG TABLET (FP) PO SCH (21:11)
[2017-11-29] MEDS: valACYclovir HCL 500 MG TABLET (FP) PO SCH (21:13)
[2017-11-30] MEDS: PRENATAL VITAMINS W/ FOLIC ACID TABLET (FP) PO SCH (09:56)
--- NOTE | 2017-11-30 13:20 | PN ---
[facility] Progress Note Note: Vital Signs Temperature 97.8 F 11/26/17 07:55 Pulse Rate 93 H 11/29/17 22:13 Respiratory Rate 18 11/30/17 03:30 Blood Pressure 109/70 11/29/17 22:13 O2 Sat by Pulse Oximetry (%) c/o of constipation which is received with colace. Reports taking medication at home 3x per day. Home meds reviewed. Patients last rx for colace Apr 2017. Will resume colace TID today. Increase fluid. Continue to monitor
[2017-11-30] MEDS: DOCUSATE SODIUM 100 MG CAPSULE (FP) PO SCH ×2 (14:47→21:18)
[2017-11-30] MEDS: traZODone HCL 50 MG TABLET (FP) PO SCH (21:18)
[2017-11-30] MEDS: THIAMINE HCL 100 MG TABLET (FP) PO SCH (21:18)
[2017-11-30] MEDS: HYDROCHLOROTHIAZIDE 25 MG TABLET (FP) PO SCH (21:18)
[2017-11-30] MEDS: MELATONIN 5 MG TABLETS PO PRN (21:18)
[2017-11-30] MEDS: SENNOSIDES 8.6MG TABLET (FP) PO SCH (21:18)
[2017-11-30] MEDS: CYCLOBENZAPRINE HCL 10 MG TABLET (FP) PO SCH (21:18)
[2017-11-30] MEDS: valACYclovir HCL 500 MG TABLET (FP) PO SCH (21:19)
[2017-11-30] MEDS: hydrOXYzine PAMOATE 50 MG CAPSULE (FP) PO PRN (21:21)
[2017-11-30] MEDS: FLUTICASONE PROP 0.05% 16 GM NASAL SPRAY NS SCH (21:22)
[2017-12-01] MEDS: DOCUSATE SODIUM 100 MG CAPSULE (FP) PO SCH ×3 (08:04→21:21)
[2017-12-01] MEDS: PRENATAL VITAMINS W/ FOLIC ACID TABLET (FP) PO SCH (09:43)
[2017-12-01] MEDS: HYDROCHLOROTHIAZIDE 25 MG TABLET (FP) PO SCH (21:21)
[2017-12-01] MEDS: traZODone HCL 50 MG TABLET (FP) PO SCH (21:21)
[2017-12-01] MEDS: SENNOSIDES 8.6MG TABLET (FP) PO SCH (21:21)
[2017-12-01] MEDS: CYCLOBENZAPRINE HCL 10 MG TABLET (FP) PO SCH (21:21)
[2017-12-01] MEDS: THIAMINE HCL 100 MG TABLET (FP) PO SCH (21:21)
[2017-12-01] MEDS: valACYclovir HCL 500 MG TABLET (FP) PO SCH (21:21)
[2017-12-01] MEDS: FLUTICASONE PROP 0.05% 16 GM NASAL SPRAY NS SCH (21:23)
[2017-12-02] MEDS: DOCUSATE SODIUM 100 MG CAPSULE (FP) PO SCH ×3 (07:11→21:11)
[2017-12-02] MEDS: PRENATAL VITAMINS W/ FOLIC ACID TABLET (FP) PO SCH (10:06)
[2017-12-02] MEDS: traZODone HCL 50 MG TABLET (FP) PO SCH (21:11)
[2017-12-02] MEDS: CYCLOBENZAPRINE HCL 10 MG TABLET (FP) PO SCH (21:11)
[2017-12-02] MEDS: THIAMINE HCL 100 MG TABLET (FP) PO SCH (21:11)
[2017-12-02] MEDS: HYDROCHLOROTHIAZIDE 25 MG TABLET (FP) PO SCH (21:11)
[2017-12-02] MEDS: hydrOXYzine PAMOATE 50 MG CAPSULE (FP) PO PRN (21:11)
[2017-12-02] MEDS: SENNOSIDES 8.6MG TABLET (FP) PO SCH (21:12)
[2017-12-02] MEDS: valACYclovir HCL 500 MG TABLET (FP) PO SCH (21:12)
[2017-12-02] MEDS: COLLOIDAL OATMEAL 1 BAR EACH TP PRN (21:13)
[2017-12-02] MEDS: FLUTICASONE PROP 0.05% 16 GM NASAL SPRAY NS SCH (21:14)
[2017-12-03] MEDS: DOCUSATE SODIUM 100 MG CAPSULE (FP) PO SCH ×3 (07:05→21:26)
[2017-12-03] MEDS: PRENATAL VITAMINS W/ FOLIC ACID TABLET (FP) PO SCH (09:20)
[2017-12-03] MEDS: THIAMINE HCL 100 MG TABLET (FP) PO SCH (21:27)
[2017-12-03] MEDS: HYDROCHLOROTHIAZIDE 25 MG TABLET (FP) PO SCH (21:27)
[2017-12-03] MEDS: traZODone HCL 50 MG TABLET (FP) PO SCH (21:27)
[2017-12-03] MEDS: CYCLOBENZAPRINE HCL 10 MG TABLET (FP) PO SCH (21:27)
[2017-12-03] MEDS: SENNOSIDES 8.6MG TABLET (FP) PO SCH (21:28)
[2017-12-03] MEDS: hydrOXYzine PAMOATE 50 MG CAPSULE (FP) PO PRN (21:28)
[2017-12-03] MEDS: MELATONIN 5 MG TABLETS PO PRN (21:29)
[2017-12-03] MEDS: IBUPROFEN 400 MG TABLET (FP) PO PRN (21:29)
[2017-12-03] MEDS: FLUTICASONE PROP 0.05% 16 GM NASAL SPRAY NS SCH (21:45)
[2017-12-03] MEDS: valACYclovir HCL 500 MG TABLET (FP) PO SCH (21:45)
[2017-12-04] MEDS: DOCUSATE SODIUM 100 MG CAPSULE (FP) PO SCH ×3 (06:31→21:21)
[2017-12-04] MEDS: PRENATAL VITAMINS W/ FOLIC ACID TABLET (FP) PO SCH (09:51)
[2017-12-04] MEDS: HYDROCORTISONE 1% TOPICAL CREAM 30 GM TUBE TP PRN (09:52)
--- NOTE | 2017-12-04 13:31 | PN ---
[facility] Progress Note Note: VALTREX 500 MG PO HS RENEWED. PT REPORTS HIS PMD WANTS HER TO TAKE IT FOR 2 YRS.
[2017-12-04] MEDS: HYDROCHLOROTHIAZIDE 25 MG TABLET (FP) PO SCH (21:20)
[2017-12-04] MEDS: SENNOSIDES 8.6MG TABLET (FP) PO SCH (21:20)
[2017-12-04] MEDS: FLUTICASONE PROP 0.05% 16 GM NASAL SPRAY NS SCH (21:20)
[2017-12-04] MEDS: traZODone HCL 50 MG TABLET (FP) PO SCH (21:21)
[2017-12-04] MEDS: hydrOXYzine PAMOATE 50 MG CAPSULE (FP) PO PRN (21:21)
[2017-12-04] MEDS: THIAMINE HCL 100 MG TABLET (FP) PO SCH (21:21)
[2017-12-04] MEDS: CYCLOBENZAPRINE HCL 10 MG TABLET (FP) PO SCH (21:21)
[2017-12-04] MEDS: IBUPROFEN 400 MG TABLET (FP) PO PRN (21:21)
[2017-12-04] MEDS: MELATONIN 5 MG TABLETS PO PRN (21:21)
[2017-12-04] MEDS: valACYclovir HCL 500 MG TABLET (FP) PO SCH (22:03)
[2017-12-05] MEDS: DOCUSATE SODIUM 100 MG CAPSULE (FP) PO SCH ×3 (07:04→21:37)
[2017-12-05] MEDS: HYDROCORTISONE 1% TOPICAL CREAM 30 GM TUBE TP PRN (09:52)
[2017-12-05] MEDS: PRENATAL VITAMINS W/ FOLIC ACID TABLET (FP) PO SCH (09:52)
[2017-12-05] MEDS: CYCLOBENZAPRINE HCL 10 MG TABLET (FP) PO SCH (21:35)
[2017-12-05] MEDS: SENNOSIDES 8.6MG TABLET (FP) PO SCH (21:35)
[2017-12-05] MEDS: IBUPROFEN 400 MG TABLET (FP) PO PRN (21:35)
[2017-12-05] MEDS: HYDROCHLOROTHIAZIDE 25 MG TABLET (FP) PO SCH (21:35)
[2017-12-05] MEDS: traZODone HCL 50 MG TABLET (FP) PO SCH (21:35)
[2017-12-05] MEDS: THIAMINE HCL 100 MG TABLET (FP) PO SCH (21:35)
[2017-12-05] MEDS: valACYclovir HCL 500 MG TABLET (FP) PO SCH (21:36)
[2017-12-05] MEDS: hydrOXYzine PAMOATE 50 MG CAPSULE (FP) PO PRN (21:37)
[2017-12-05] MEDS: FLUTICASONE PROP 0.05% 16 GM NASAL SPRAY NS SCH (21:45)
[2017-12-06] MEDS: DOCUSATE SODIUM 100 MG CAPSULE (FP) PO SCH ×3 (06:41→21:24)
[2017-12-06] MEDS: PRENATAL VITAMINS W/ FOLIC ACID TABLET (FP) PO SCH (09:45)
[2017-12-06] MEDS: HYDROCORTISONE 1% TOPICAL CREAM 30 GM TUBE TP PRN (09:46)
[2017-12-06] MEDS: HYDROCHLOROTHIAZIDE 25 MG TABLET (FP) PO SCH (21:24)
[2017-12-06] MEDS: SENNOSIDES 8.6MG TABLET (FP) PO SCH (21:24)
[2017-12-06] MEDS: THIAMINE HCL 100 MG TABLET (FP) PO SCH (21:24)
[2017-12-06] MEDS: hydrOXYzine PAMOATE 50 MG CAPSULE (FP) PO PRN (21:24)
[2017-12-06] MEDS: CYCLOBENZAPRINE HCL 10 MG TABLET (FP) PO SCH (21:24)
[2017-12-06] MEDS: traZODone HCL 50 MG TABLET (FP) PO SCH (21:24)
[2017-12-06] MEDS: valACYclovir HCL 500 MG TABLET (FP) PO SCH (21:25)
[2017-12-06] MEDS: FLUTICASONE PROP 0.05% 16 GM NASAL SPRAY NS SCH (21:27)
[2017-12-06] MEDS: MELATONIN 5 MG TABLETS PO PRN (21:27)
[2017-12-07] MEDS: DOCUSATE SODIUM 100 MG CAPSULE (FP) PO SCH ×3 (06:51→21:16)
[2017-12-07] MEDS: PRENATAL VITAMINS W/ FOLIC ACID TABLET (FP) PO SCH (10:09)
[2017-12-07] MEDS: COLLOIDAL OATMEAL 1 BAR EACH TP PRN (17:44)
[2017-12-07] MEDS: THIAMINE HCL 100 MG TABLET (FP) PO SCH (21:15)
[2017-12-07] MEDS: CYCLOBENZAPRINE HCL 10 MG TABLET (FP) PO SCH (21:15)
[2017-12-07] MEDS: traZODone HCL 50 MG TABLET (FP) PO SCH (21:15)
[2017-12-07] MEDS: HYDROCHLOROTHIAZIDE 25 MG TABLET (FP) PO SCH (21:15)
[2017-12-07] MEDS: hydrOXYzine PAMOATE 50 MG CAPSULE (FP) PO PRN (21:15)
[2017-12-07] MEDS: MELATONIN 5 MG TABLETS PO PRN (21:16)
[2017-12-07] MEDS: valACYclovir HCL 500 MG TABLET (FP) PO SCH (21:17)
[2017-12-07] MEDS: SENNOSIDES 8.6MG TABLET (FP) PO SCH (21:19)
[2017-12-07] MEDS: IBUPROFEN 400 MG TABLET (FP) PO PRN (21:19)
[2017-12-07] MEDS: FLUTICASONE PROP 0.05% 16 GM NASAL SPRAY NS SCH (21:19)
[2017-12-08] MEDS: DOCUSATE SODIUM 100 MG CAPSULE (FP) PO SCH ×3 (06:37→21:26)
[2017-12-08 09:03] VITALS: TEMP 97.8
[2017-12-08] MEDS: PRENATAL VITAMINS W/ FOLIC ACID TABLET (FP) PO SCH (10:08)
[2017-12-08] MEDS: IBUPROFEN 400 MG TABLET (FP) PO PRN (21:25)
[2017-12-08] MEDS: HYDROCHLOROTHIAZIDE 25 MG TABLET (FP) PO SCH (21:25)
[2017-12-08] MEDS: hydrOXYzine PAMOATE 50 MG CAPSULE (FP) PO PRN (21:25)
[2017-12-08] MEDS: FLUTICASONE PROP 0.05% 16 GM NASAL SPRAY NS SCH (21:25)
[2017-12-08] MEDS: MELATONIN 5 MG TABLETS PO PRN (21:26)
[2017-12-08] MEDS: traZODone HCL 50 MG TABLET (FP) PO SCH (21:26)
[2017-12-08] MEDS: THIAMINE HCL 100 MG TABLET (FP) PO SCH (21:26)
[2017-12-08] MEDS: CYCLOBENZAPRINE HCL 10 MG TABLET (FP) PO SCH (21:26)
[2017-12-08] MEDS: valACYclovir HCL 500 MG TABLET (FP) PO SCH (21:26)
[2017-12-08] MEDS: SENNOSIDES 8.6MG TABLET (FP) PO SCH (21:26)
[2017-12-09] MEDS: DOCUSATE SODIUM 100 MG CAPSULE (FP) PO SCH ×3 (06:14→21:17)
[2017-12-09] MEDS: PRENATAL VITAMINS W/ FOLIC ACID TABLET (FP) PO SCH (10:10)
--- NOTE | 2017-12-09 17:00 | PN ---
Psychiatric Progress Note Vital Signs: Vital Signs Period Temp Pulse Resp BP Sys/Dent Pulse Ox Last 24 Hr 80 18-18 116/78 Date of Session: 12/09/17 Chief Complaint:: Discharge visit Current Medications: Active Medications Generic Name Dose Route Start Last Admin Trade Name Freq PRN Reason Stop Dose Admin Acetaminophen 650 mg 11/13/17 16:05 Tylenol - PO Q4H PRN FEVER Al Hydroxide/Mg Hydroxide 30 ml 11/13/17 16:05 11/19/17 21:19 Mylanta Oral Suspension - PO 30 ml Q6H PRN Administration DYSPEPSIA Buspirone HCl 30 mg 11/14/17 10:00 12/09/17 10:10 Buspar - PO 30 mg DAILY ADRIEN Administration Colloidal Oatmeal 1 applic 11/13/17 16:07 12/07/17 17:44 Aveeno Soap - TP 1 applic DAILY PRN Administration HYGEINE Cyclobenzaprine HCl 10 mg 11/13/17 22:00 12/08/17 21:26 Flexeril - PO 10 mg HS ADRIEN Administration Docusate Sodium 100 mg 11/30/17 14:00 12/09/17 13:40 Colace - PO 100 mg TID ADRIEN Administration Eucalyptus/Menthol/Phenol/Sorbitol 1 each 11/13/17 16:05 Cepastat Lozenge - MM Q4H PRN SORE THROAT Fluticasone Propionate 1 spray 11/13/17 22:00 12/08/17 21:25 Flonase - NS 1 spray HS ADRIEN Administration Guaifenesin 10 ml 11/13/17 16:05 Robitussin Dm - PO Q6H PRN COUGH Hydrochlorothiazide 25 mg 11/13/17 22:00 12/08/17 21:25 Hctz - PO 25 mg HS ADRIEN Administration Hydrocortisone 1 applic 11/13/17 16:07 12/06/17 09:46 Hytone 1% Cream - TP 1 applic Q12H PRN Administration FOR ITCHING Hydroxyzine Pamoate 50 mg 11/13/17 16:05 12/08/17 21:25 Vistaril - PO 50 mg Q4H PRN Administration AGITATION Ibuprofen 400 mg 11/13/17 16:05 12/08/17 21:25 Motrin - PO 400 mg Q6H PRN Administration Pain level 4-6 Loperamide HCl 4 mg 11/13/17 16:05 Imodium - PO Q6H PRN DIARRHEA Magnesium Citrate 300 ml 11/13/17 16:05 Citroma - PO Q48H PRN CONSTIPATION Magnesium Hydroxide 30 ml 11/13/17 16:05 Milk Of Magnesia - PO DAILY PRN CONSTIPATION Melatonin 5 mg 11/13/17 22:00 12/08/17 21:26 Melatonin PO 5 mg HS PRN Administration INSOMNIA Multivit/Folic Acid/Iron 1 tab 11/14/17 10:00 12/09/17 10:10 Vitamins (Sjr) - PO 1 tab DAILY ADRIEN Administration Pseudoephedrine/Triprolidine 1 combo 11/13/17 16:05 Actifed - PO TID PRN NASAL CONGESTION Senna 2 tab 11/13/17 22:00 12/08/17 21:26 Senna - PO 2 tab HS ADRIEN Administration Thiamine HCl 100 mg 11/13/17 22:00 12/08/17 21:26 Vitamin B1 - PO 100 mg HS ADRIEN Administration Trazodone HCl 150 mg 11/18/17 18:02 12/08/17 21:26 Desyrel - PO 150 mg HS ADRIEN Administration Valacyclovir HCl 500 mg 12/04/17 22:00 12/08/17 21:26 Valtrex - PO 500 mg HS ADRIEN Administration Current Side Effect: No Lab tests ordered: No Lab tests reviewed: Yes Provider note:: Buspar 15 mg po bid,Trazodone 150 mg po hs. Total face to face time:: 30 Psychiatric Treatment Plan - Problem List (1) Alcohol dependence Current Visit: Yes Qualifiers: Substance use status: uncomplicated Qualified Code(s): F10.20 - Alcohol dependence, uncomplicated (2) Cannabis dependence Current Visit: Yes (3) Eczema Current Visit: Yes Qualifiers: Eczema type: flexural Qualified Code(s): L20.82 - Flexural eczema (4) HTN (hypertension) Current Visit: Yes Qualifiers: Hypertension type: essential hypertension Qualified Code(s): I10 - Essential (primary) hypertension (5) Nicotine dependence Current Visit: Yes Qualifiers: Nicotine product type: cigarettes Substance use status: uncomplicated Qualified Code(s): F17.210 - Nicotine dependence, cigarettes, uncomplicated (6) Obesity (BMI 30-39.9) Current Visit: Yes (7) Cocaine dependence Current Visit: Yes (8) Drug-induced mood disorder Current Visit: Yes
[2017-12-09] MEDS: valACYclovir HCL 500 MG TABLET (FP) PO SCH (21:16)
[2017-12-09] MEDS: THIAMINE HCL 100 MG TABLET (FP) PO SCH (21:16)
[2017-12-09] MEDS: HYDROCHLOROTHIAZIDE 25 MG TABLET (FP) PO SCH (21:17)
[2017-12-09] MEDS: SENNOSIDES 8.6MG TABLET (FP) PO SCH (21:17)
[2017-12-09] MEDS: CYCLOBENZAPRINE HCL 10 MG TABLET (FP) PO SCH (21:17)
[2017-12-09] MEDS: hydrOXYzine PAMOATE 50 MG CAPSULE (FP) PO PRN (21:17)
[2017-12-09] MEDS: IBUPROFEN 400 MG TABLET (FP) PO PRN (21:17)
[2017-12-09] MEDS: traZODone HCL 50 MG TABLET (FP) PO SCH (21:17)
[2017-12-09] MEDS: MELATONIN 5 MG TABLETS PO PRN (21:19)
[2017-12-09] MEDS: FLUTICASONE PROP 0.05% 16 GM NASAL SPRAY NS SCH (21:53)
[2017-12-09 22:09] VITALS: BP 117/81; PULSE 87
[2017-12-10] MEDS: DOCUSATE SODIUM 100 MG CAPSULE (FP) PO SCH (06:16)
[2017-12-10] MEDS: PRENATAL VITAMINS W/ FOLIC ACID TABLET (FP) PO SCH (09:07)
== END 2017-12-10 09:12 | disposition home or self-care (01) | DRG 772 ==
LOC: YASAS 14:46 → Y3E 15:23
PROVIDERS: ADMIT Psychiatry & Neurology Psychiatry; ATTEND Psychiatry & Neurology Psychiatry
PROC: HZ42ZZZ Group Counseling for Substance Abuse Treatment, Cognitive-Behavioral (ICD-10-PCS; principal; 2017-11-13)
DX: F10.20 Alcohol dependence, uncomplicated (principal); F14.20 Cocaine dependence, uncomplicated; F12.20 Cannabis dependence, uncomplicated; F17.210 Nicotine dependence, cigarettes, uncomplicated; F19.24 Other psychoactive substance dependence with psychoactive substance-induced mood disorder; F32.9 Major depressive disorder, single episode, unspecified; G47.00 Insomnia, unspecified; I10 Essential (primary) hypertension; L20.82 Flexural eczema; E87.6 Hypokalemia; E66.9 Obesity, unspecified; Z68.39 Body mass index [BMI] 39.0-39.9, adult
CPT/HCPCS: 36415; 80053; 81003; 84132; 85027; 86593; 93005; 93010